=== PATIENT | female | born 1935 | race Caucasian/White ===

== ENCOUNTER 2018-01-16 04:18 | Inpatient (IN) | payer MEDICARE ==
[~2018-01-16] VITALS: Ht 162.6 cm; Wt 72.0 kg
[2018-01-16 04:28] VITALS: BP 147/68; PULSE 68; RESP 16; TEMP 98.6; O2SAT 94
--- NOTE | 2018-01-16 04:42 | PD ---
HPI Chief Complaint: Fall Time Seen by Provider: 04:22 Travel History International Travel<30 days: No Contact w/Intl Traveler<30days: No Traveled to known affect area: No History of Present Illness HPI pt is 82 yr old female with facial fracture and orbital fracture transferred to Dr Jack trauma from [facility], pt has swelling left maxilalry and orbital area and comes to ER with CTs and paperwork documenting labs and treament at [facility] . Pt has facial pain an dno diplopia no entrapment of muscles no other complaints but left shoulder pain that she reports was xray and no fractures seem, I asked if she needs anything for the pain and she replied , No , fall happened due to ledge step up in bathroom and she fell face first onto the floor [facility] Past Medical History Hx Anticoagulant Therapy: Yes Social History Tobacco Use: No Allergies-Medications (Allergen,Severity, Reaction): Coded Allergies: morphine (Verified Allergy, Unknown, "crazy", 01/16/18) Reported Meds & Prescriptions Reported Meds & Active Scripts Active Active Prescriptions or Reported Medications Unobtainable Review of Systems Except as stated in HPI: all other systems reviewed are Neg Physical Exam Narrative GENERAL: facial swelling mild with yellowish purple discoloartioon to left orbitalarea and subconjunctival hemotoma SKIN: Warm and dry. HEAD: +traumatic to left maxillary orbitla area . Normocephalic. EYES: Pupils equal and round. No scleral icterus. No injection or drainage. left subconjunctival hematoma , no diplopia ,, EOMI FROM ocular ENT: No nasal bleeding or discharge. Mucous membranes pink and moist. NECK: Trachea midline. No JVD. CARDIOVASCULAR: Regular rate and rhythm. RESPIRATORY: No accessory muscle use. Clear to auscultation. Breath sounds equal bilaterally. GASTROINTESTINAL: Abdomen soft, non-tender, nondistended. Hepatic and splenic margins not palpable. MUSCULOSKELETAL: Extremities without clubbing, cyanosis, or edema. No obvious deformities. NEUROLOGICAL: Awake and alert. No obvious cranial nerve deficits. Motor grossly within normal limits. Five out of 5 muscle strength in the arms and legs. Normal speech. PSYCHIATRIC: Appropriate mood and affect; insight and judgment normal. Data Data Last Documented VS Vital Signs Date Time Temp Pulse Resp B/P (MAP) Pulse Ox O2 Delivery O2 Flow Rate FiO2 01/16/18 04:28 98.6 68 16 147/68 (87) 94 MDM Medical Decision Making Medical Screen Exam Complete: Yes Emergency Medical Condition: Yes Medical Record Reviewed: Yes Differential Diagnosis transferred for facial trauma and accepted by Dr Sofia , pt has orbital and sinus and maxillary fractures seen on CT sent with her from [facility] Narrative Course reviwed CT films and labs and xrays and admitted to Trauma surgery Dr Jack Scripts Unable to Obtain Active Prescriptions or Reported Meds Phi Mae MD January 16, 2018 04:42
[2018-01-16] MEDS ORDERED: ACETAMINOPHEN 325 MG TAB PO PRN (05:15)
[2018-01-16] MEDS ORDERED: oxyCODONE/ACETAMINOPHEN 5 MG/325 MG TAB PO PRN (05:15)
[2018-01-16] MEDS ORDERED: ACETAMINOPHEN 325 MG TAB PO ONE (05:15)
[2018-01-16 07:12] VITALS: BP 151/71; PULSE 65; RESP 18; O2SAT 96
[2018-01-16 09:24] VITALS: BP 168/70; PULSE 67; RESP 19; O2SAT 97
[2018-01-16] MEDS ORDERED: SODIUM CHLOR 0.9% 1000 ML INJ 1,000 ML IV SCH (10:05)
[2018-01-16] MEDS ORDERED: SODIUM CHLORIDE 0.9% FLUSH 10 ML FLUSH IV FLUSH PRN (10:15)
[2018-01-16] MEDS ORDERED: ENALAPRILAT 1.25 MG/ML VIAL IV PUSH PRN (10:15)
[2018-01-16] MEDS ORDERED: ONDANSETRON HCL 4 MG/2 ML VIAL IV PUSH PRN (10:15)
[2018-01-16] MEDS ORDERED: DOCU1CAP39 PO (10:56)
[2018-01-16] MEDS ORDERED: MAGN30S PO (10:56)
[2018-01-16] MEDS ORDERED: NORC5TAB PO (10:56)
[2018-01-16] MEDS ORDERED: PANTOPRAZOLE SODIUM 40 MG VIAL IVP SCH (11:00)
--- NOTE | 2018-01-16 11:10 | HHI.HP ---
HPI Service Critical Care Medicine Primary Care Physician No Primary Care Physician Admission Diagnosis facial fracture Diagnosis: Chief Complaint: Left facial pain Travel History International Travel<30 Days: No Contact w/Intl Traveler <30 Da: No Traveled to Known Affected Are: No History of Present Illness 82-year-old woman who tripped over the threshold stepping out of the shower. She denies loss of consciousness but does not really remember the event. She was worked up in outside hospital found to have facial fractures. She also complained of shoulder pain but the x-rays revealed no injury to her shoulder. She was transferred to [place] for evaluation of her facial fractures. Review of Systems Constitutional: DENIES: Diaphoretic episodes, Fatigue, Fever, Weight gain, Weight loss, Chills, Dizziness, Change in appetite, Night Sweats Endocrine: DENIES: Abnorml menstrual pattern, Heat/cold intolerance, Polydipsia , Polyuria, Polyphagia Eyes: DENIES: Blurred vision, Diplopia, Eye inflammation, Eye pain, Vision loss , Photosensitivity, Double Vision Ears, nose, mouth, throat: DENIES: Tinnitus, Hearing loss, Vertigo, Nasal discharge, Oral lesions, Throat pain, Hoarseness, Ear Pain, Running Nose, Epistaxis, Sinus Pain, Toothache, Odynophagia Respiratory: DENIES: Apneas, Cough, Snoring, Wheezing, Hemoptysis, Sputum production, Shortness of breath Cardiovascular: DENIES: Chest pain, Palpitations, Syncope, Dyspnea on Exertion , PND, Lower Extremity Edema, Orthopnea, Claudication Gastrointestinal: DENIES: Abdominal pain, Black stools, Bloody stools, Constipation, Diarrhea, Nausea, Vomiting, Difficulty Swallowing, Anorexia Genitourinary: DENIES: Abnormal vaginal bleeding, Dysmenorrhea, Dyspareunia, Sexual dysfunction, Urinary frequency, Urinary incontinence, Urgency, Hematuria , Dysuria, Nocturia, Vaginal discharge Musculoskeletal: DENIES: Joint pain, Muscle aches, Stiffness, Joint Swelling, Back pain, Neck pain Integumentary: DENIES: Abnormal pigmentation, Pruritus, Rash, Nail changes, Breast masses, Breast skin changes, Nipple discharge Hematologic/lymphatic: DENIES: Bruising, Lymphadenopathy Immunologic/allergic: DENIES: Eczema, Urticaria Neurologic: DENIES: Abnormal gait, Headache, Localized weakness, Paresthesias, Seizures, Speech Problems, Tremor, Poor Balance Psychiatric: DENIES: Anxiety, Confusion, Mood changes, Depression, Hallucinations, Agitation, Suicidal Ideation, Homicidal Ideation, Delusions Past Family Social History Allergies: Coded Allergies: morphine (Verified Allergy, Unknown, "crazy", 01/16/18) Past Medical History Hypertension Atrial fibrillation Hypercholesterolemia Past Surgical History Pacemaker Reported Medications She is unsure of her medications but 1 of them is Coumadin Family History Reviewed and not relevant Social History Social alcohol, no tobacco or drug Physical Exam Vital Signs Vital Signs Date Time Temp Pulse Resp B/P (MAP) Pulse Ox O2 Delivery O2 Flow Rate FiO2 01/16/18 09:24 67 19 168/70 (102) 97 Room Air 01/16/18 07:12 65 18 151/71 (97) 96 Room Air 01/16/18 04:28 98.6 68 16 147/68 (94) 94 Physical Exam GENERAL: facial swelling, left periorbital ecchymosis subconjunctival hemotoma SKIN: Warm and dry. HEAD: Calvarium is atraumatic normocephalic with left periorbital trauma EYES: Pupils equal and round. Sclera nonicteric. No injection or drainage. left subconjunctival hematoma , no diplopia extraocular movement intact ENT: No nasal bleeding or discharge. Mucous membranes pink and moist. NECK: Trachea midline. No JVD. CARDIOVASCULAR: Regular rate and rhythm. RESPIRATORY: No accessory muscle use. Clear to auscultation. Breath sounds equal bilaterally. GASTROINTESTINAL: Abdomen soft, non-tender, nondistended MUSCULOSKELETAL: Extremities without clubbing, cyanosis, or edema. Palpable distal pulses no obvious deformities. NEUROLOGICAL: Awake and alert. No obvious cranial nerve deficits. Motor grossly within normal limits. Five out of 5 muscle strength in the arms and legs. Normal speech. PSYCHIATRIC: Appropriate mood and affect; insight and judgment normal. Caprini VTE Risk Assessment Caprini VTE Risk Assessment: No/Low Risk (score <= 1) Caprini Risk Assessment Model Point Value = 1 Point Value = 2 Point Value = 3 Point Value = 5 Age 41-60 Minor surgery BMI > 25 kg/m2 Swollen legs Varicose veins or History of unexplained or recurrent spontaneous Oral contraceptives or hormone replacement Sepsis (< 1 month) Serious lung disease, including pneumonia (< 1 month) Abnormal pulmonary function Acute myocardial infarction Congestive heart failure (< 1 month) History of inflammatory bowel disease Medical patient at bed rest Age 61-74 Arthroscopic surgery Major open surgery (> 45 min) Laparoscopic surgery (> 45 min) Malignancy Confined to bed (> 72 hours) Immobilizing plaster cast Central venous access Age >= 75 History of VTE Family history of VTE Factor V Leiden Prothrombin [id number] Lupus anticoagulant Anticardiolipin antibodies Elevated serum homocysteine Heparin-induced thrombocytopenia Other congenital or acquired thrombophilia Stroke (< 1 month) Elective arthroplasty Hip, pelvis, or leg fracture Acute spinal cord injury (< 1 month) Prophylaxis Regimen Total Risk Factor Score Risk Level Prophylaxis Regimen 0-1 Low Early ambulation 2 Moderate Order ONE of the following: *Sequential Compression Device (SCD) *Heparin 5000 units SQ BID 3-4 Higher Order ONE of the following medications: *Heparin 5000 units SQ TID *Enoxaparin/Lovenox 40 mg SQ daily (WT < 150 kg, CrCl > 30 mL/min) *Enoxaparin/Lovenox 30 mg SQ daily (WT < 150 kg, CrCl > 10-29 mL/min) *Enoxaparin/Lovenox 30 mg SQ BID (WT < 150 kg, CrCl > 30 mL/min) AND/OR *Sequential Compression Device (SCD) 5 or more Highest Order ONE of the following medications: *Heparin 5000 units SQ TID (Preferred with Epidurals) *Enoxaparin/Lovenox 40 mg SQ daily (WT < 150 kg, CrCl > 30 mL/min) *Enoxaparin/Lovenox 30 mg SQ daily (WT < 150 kg, CrCl > 10-29 mL/min) *Enoxaparin/Lovenox 30 mg SQ BID (WT < 150 kg, CrCl > 30 mL/min) AND *Sequential Compression Device (SCD) Assessment and Plan Assessment and Plan Fall with facial fractures, non-syncopal -Reviewed by [facility] on-call -Patient can be discharged and follow-up as an outpatient with Maxwell Kirk MD January 16, 2018 11:10
[2018-01-16 11:35] VITALS: BP 164/71
--- NOTE | 2018-01-16 12:19 | MB ---
cc: Arsenio Morgan DDS DATE: 01/16/2018 DATE OF CONSULTATION: 01/16/2018. She was transferred to the [place] on 01/16/2018. REASON FOR CONSULTATION: I was asked to evaluate this 82-year-old female who fell and came to [facility]. Apparently transfer was accepted by Dr. Douglass from [place] for some swelling in her orbital area. She has no other injury apparent other than her facial injuries. Transfer was then accepted by me from the trauma surgeon. IMAGING STUDIES: On her CT scan, which I evaluated from [facility] which came on a disk, she has a comminuted nondisplaced fractures of the anterior wall and maxillary sinus, extending up into the orbital floor, getting minimally displaced including the rim. ASSESSMENT: She has no need for any surgical intervention. She has no entrapment, no diplopia or any other complaints. Apparently she has some left shoulder pain. Her mandible is stable. She fell apparently in her bathroom when she was coming up onto the steps of the floor. She requires no surgical intervention from a maxillofacial standpoint. RECOMMENDATIONS: 1. She could go home. She is in the ED at [place] and can go home at any time from my standpoint. 2. Follow up in a week in our office. ELINOR Greenwood/BECKY , 11:29 AM , 12:19 PM
--- NOTE | 2018-01-16 13:25 | HHI.DS ---
Discharge Summary Admission Date January 16, 2018 at 5:10 am Discharge Date: January 16, 2018 Admitting Diagnosis facial fracture (1) Facial fracture ICD Codes: S02.92XA - Unspecified fracture of facial bones, initial encounter for closed fracture Status: Acute Brief History Mechanical fall Imaging From [facility] via CD PE at Discharge GENERAL: This is a 82-year-old female lying in bed. No distress noted. SKIN: Warm and dry. HEAD: Atraumatic. Normocephalic. EYES: Swelling and ecchymosis to left eye. ENT: No nasal bleeding or discharge. Mucous membranes pink and moist. NECK: Trachea midline. No JVD. CARDIOVASCULAR: Regular rate and rhythm. RESPIRATORY: No accessory muscle use. Lungs are clear to auscultation. Breath sounds equal bilaterally. No distress or dyspnea. GASTROINTESTINAL: BS + x 4 quads. Abdomen soft, non-tender, nondistended. MUSCULOSKELETAL: Extremities without cyanosis, or edema. + peripheral pulses x 4 extremities. Warm with good capillary refill and sensation. MAEW. NEUROLOGICAL: Awake and alert. Normal speech and pattern. Hospital Course [place] RESERVATION: This is an 82-year-old female who sustained a mechanical fall. Fell face first into the bathroom floor. Trauma transfer from [facility]. INJURIES: Facial Fx Orbital fx Consult: [facility]. The patient very much would like to go home. The patient is now tolerating a po diet. Eating and drinking well. Pain is being managed well with PO pain medications, and patient is being a provided with a script for pain meds upon discharge. (NO driving while taking narcotic pain medication enforced to patient.) We have recommended to patient to continue with stool softeners while taking narcotic pain medications to prevent constipation. Pt has been participating in PT while admitted at [place] and has been ambulating with their assistance and independently . No PT needs at home All follow up appointments have been provided and discussed with the patient. It is recommended that the patient keeps all his follow up appointments for continued recovery. Patient is to follow-up with [facility] in 1 week to follow-up and facial fractures. Patient's condition and plan of care discussed with collaborating trauma surgeon. He is agreeable to plan for discharge today. Therefore, the patient is stable to be safely discharged home from a trauma surgery standpoint. Thank you for allowing us to participate in his care. We wish Anusha the best in his recovery. Pt Condition on Discharge: Stable Discharge Disposition: Discharge Home Discharge Instructions DIET: Follow Instructions for: As Tolerated, No Restrictions Activities you can perform: Regular-No Restrictions Activities to Avoid: Driving for 24 hrs, Concussion Sports, Contact Sports, Lifting/Bending, Weight Bearing, Prolonged Standing, Strenuous Activity Attending Statement The exam, history, and the medical decision-making described in the above note were completed with the assistance of the mid-level provider. I reviewed and agree with the findings presented. I attest that I had a [id number] encounter with the patient on the same day, and personally performed and documented my assessment and findings in the medical record. Brianna Haddad January 16, 2018 13:25 Maxwell Barnett MD January 16, 2018 17:58
[2018-01-16] MEDS ORDERED: DOCUSATE SODIUM 100 MG CAP PO SCH (21:00)
[2018-01-16] MEDS ORDERED: MAGNESIUM HYDROXIDE SUSP 30 ML CUP PO SCH (21:00)
== END 2018-01-16 11:42 | disposition home or self-care (01) | DRG 566 ==
LOC: NEPE 04:18 → NEDA 05:10 → NEDH 10:49
PROVIDERS: ADMIT Surgery; ATTEND Surgery
DX: S02.82XA Fracture of other specified skull and facial bones, left side, initial encounter for closed fracture (principal); I48.91 Unspecified atrial fibrillation; I10 Essential (primary) hypertension; M25.512 Pain in left shoulder; W01.198A Fall on same level from slipping, tripping and stumbling with subsequent striking against other object, initial encounter; Y92.002 Bathroom of unspecified non-institutional (private) residence as the place of occurrence of the external cause; E78.00 Pure hypercholesterolemia, unspecified; Z95.0 Presence of cardiac pacemaker